=== PATIENT | male | born 1970 | race Hispanic/Latino ===

== ENCOUNTER 2020-02-28 22:56 | Emergency (ER) | payer BC ==
[2020-02-28 23:24] LABS: Bacteria/HPF None Seen HPF (None Seen); Bilirubin Negative (Negative); Blood, Urine Trace (Negative); Clarity Clear (Clear); Glucose, Urine (Dipstick) Normal (Negative); Ketone, Urine Negative (Negative); Leukocyte Negative Leu/uL (Negative); Nitrite Negative (Negative); Protein, Urine (Dipstick) 30 mg/dL (Neg-Trace); RBC/HPF 0-3 HPF (0-3); Specific Gravity, Urine 1.031 (1.002-1.036); Squamous Epithelial 0-3 HPF (0-3); Urobilinogen Normal mg/dL (Less than 2); WBC/HPF 0-3 HPF (0-3); pH, Urine 5.5 (5.0-9.0)
--- NOTE | 2020-02-28 23:59 | CT ---
CT ABDOMEN NONCONTRAST CT PELVIS NONCONTRAST: (Urolithiasis protocol) DATE: 02/28/2020 HISTORY: 49-year-old male with left flank pain COMPARISON: None TECHNIQUE: IV injection of iodinated contrast media: None Oral contrast media: None FINDINGS: Other than for urolithiasis, the lack of IV and oral contrast limits the evaluation. There is a 3 x 2 x 5 mm calculus in the left proximal to mid ureter at the L3-4 level. There is very mild dilation of left renal collecting system. No calculus within the kidneys or in the nearly empty urinary bladder. A few diverticula in the proximal sigmoid colon without diverticulitis. Diffusely low hepatic attenuation consistent with fatty liver. Appendix not visualized. No signs of appendicitis (has there been appendectomy?). No small bowel dilation, ascites, pneumoperitoneum, or pleural effusion. Within the limitations of a noncontrast scan, no major pathology identified involving abdominal aorta , right kidney, pancreas, adrenals, or spleen. A large number of tiny and small calcific or metallic densities near midline in the mesentery, of unc ertain origin or significance. IMPRESSION: 1) a 5 x 3 x 2 mm calculus in the left proximal-mid ureter causing very mild left hydronephrosis. 2) multiple small calcifications in the mesentery
[2020-02-29] MEDS ORDERED: Ketorolac Tromethamine 30 MG/ML VIAL ONE (00:09)
[2020-02-29] MEDS ORDERED: Cyclobenzaprine 10 MG TAB ONE (00:11)
[2020-02-29 00:21] LABS: ALT (SGPT) 20 U/L (8-55); AST (SGOT) 15 U/L (5-34); Albumin 4.3 g/dL (3.5-5.0); Alkaline Phosphatase 86 U/L (40-110); Anion Gap 16 mmol/L (10-20); BUN (Urea Nitrogen) 18 mg/dL (8.9-20.6); Bilirubin, Total 0.4 mg/dL (0.2-1.2); Calc. Creatinine Clearance 0 mL/min (70-130); Calcium 8.9 mg/dL (7.8-10.44); Carbon Dioxide 24 mmol/L (22-29); Chloride 103 mmol/L (98-107); Estimated GFR-MDRD 65; Globulin 2.9 g/dL (2.4-3.5); Glucose 162 mg/dL (70-105); Potassium 4.1 mmol/L (3.5-5.1); Protein, Total 7.2 g/dL (6.0-8.3); Sodium 139 mmol/L (136-145)
[2020-02-29] MEDS ORDERED: Acetaminophen/Codeine 30-300mg Tablet ONE (01:36)
[2020-02-29] MEDS ORDERED: Ondansetron ODT 8 MG TAB ONE (01:36)
== END 2020-02-29 02:01 | disposition home or self-care (01) ==
LOC: ERS 22:56
DX: N13.2 Hydronephrosis with renal and ureteral calculous obstruction (principal)
CPT/HCPCS: 36415; 74176; 80053; 81003; 81015; 96372; J1885; Q0162